=== PATIENT | female | born 1965 | race Caucasian/White ===

== ENCOUNTER 2024-04-04 21:04 | Emergency (ER) | payer OTHER ==
[2024-04-04] MEDS: Famotidine 20 MG Tab PO ONE (22:53)
[2024-04-04] MEDS: methylPREDNISolone Sodium Succinate 40 MG/1 ML SDV IM ONE (22:54)
== END 2024-04-04 23:00 | disposition home or self-care (01) ==
LOC: JD.ED 21:04
DX: L50.9 Urticaria, unspecified (principal)
CPT/HCPCS: 96372; 99282; A9270; J2920